=== PATIENT | female | born 1960 | race Caucasian/White ===

== ENCOUNTER 2022-01-24 11:28 | Outpatient (CLI) | payer OTHER | END 2022-01-24 11:29 | disposition home or self-care (01) | LOC: CSHMAMMO 11:28 | PROVIDERS: ATTEND Family Medicine | DX: Z12.31 Encounter for screening mammogram for malignant neoplasm of breast (principal); Z80.3 Family history of malignant neoplasm of breast | CPT/HCPCS: 77063; 77067 ==

== ENCOUNTER 2022-10-31 10:17 | Outpatient (CLI) | payer BC | END 2022-10-31 10:18 | disposition home or self-care (01) | LOC: CSHMAMMO 10:17 | PROVIDERS: ATTEND Family Medicine | DX: N64.4 Mastodynia (principal) | CPT/HCPCS: G0279 ==

== ENCOUNTER 2023-01-27 10:44 | Outpatient (CLI) | payer BC | END 2023-01-27 10:45 | disposition home or self-care (01) | LOC: CSHMAMMO 10:44 | PROVIDERS: ATTEND Internal Medicine | DX: Z12.31 Encounter for screening mammogram for malignant neoplasm of breast (principal); Z80.3 Family history of malignant neoplasm of breast | CPT/HCPCS: 77063; 77067 ==

== ENCOUNTER 2024-01-28 10:51 | Outpatient (CLI) | payer BC | END 2024-01-28 10:52 | disposition home or self-care (01) | LOC: CSHMAMMO 10:51 | PROVIDERS: ATTEND Internal Medicine | DX: Z12.31 Encounter for screening mammogram for malignant neoplasm of breast (principal); Z80.3 Family history of malignant neoplasm of breast | CPT/HCPCS: 77063; 77067 ==

== ENCOUNTER 2025-03-07 13:02 | Outpatient (CLI) | payer BC | END 2025-03-07 13:03 | disposition home or self-care (01) | LOC: CSHMAMMO 13:02 | DX: Z12.31 Encounter for screening mammogram for malignant neoplasm of breast (principal); Z80.3 Family history of malignant neoplasm of breast | CPT/HCPCS: 77063; 77067 ==